=== PATIENT | female | born 1965 | race Caucasian/White ===

== ENCOUNTER 2018-11-20 16:36 | Observation (INO) | payer OTHER, MEDICAID, SELFPAY ==
[2018-11-20] VITALS (8 sets, daily range): BP systolic 124–150; BP diastolic 60–90; PULSE 57–72; RESP 14–20; TEMP 36.4–36.8; O2SAT 94–100; BMI 30.2
--- NOTE | 2018-11-20 | DI.MRI.S_ITS ---
PROCEDURE: MR HEAD/BRAIN WO/W CON INDICATIONS: Severe headache, left-sided transient paresthesias TECHNIQUE: Noncontrast axial T1 spin echo, axial T2 fast spin echo, sagittal and axial FLAIR, coronal T2 fast spin echo, axial gradient echo, axial diffusion and ADC through the brain. After the administration of contrast, axial and coronal 3D VIBE or T1 spin echo with fat saturation through the brain. COMPARISON: [facility], CT, CT ANGIO HEAD AND NECK, 11/20/2018, 17:35. FINDINGS: Image quality: Excellent. CSF Spaces: Basal cisterns are patent. No extra-axial fluid collections. Ventricles are normal in size and shape. Brain: No midline shift. No intracranial bleeds or masses. No abnormal intracranial enhancement. The brainstem appears normal. Diffusion-weighted images demonstrate no acute ischemic insults. No chronic ischemic insults. Normal intravascular flow voids are present. Skull and face: Calvarial marrow is normal in signal. Orbits appear normal. Sinuses: Sinuses and mastoids appear clear. IMPRESSION: 1. Normal brain MRI exam. Dictated by: Rupa Newton M.D. on 11/22/2018 at 13:12 Approved by: Rupa Newton M.D. on 11/22/2018 at 13:17
--- NOTE | 2018-11-20 16:50 | ED.NEUROSD ---
HPI - Neuro Symptoms/Deficit General Chief Complaint: Neuro Symptoms/Deficit Stated Complaint: throbbing head on left side,lossing sleep. Time Seen by Provider: 11/20/18 16:50 Source: patient Mode of arrival: ambulatory Limitations: no limitations History of Present Illness HPI Narrative: Patient is a 53-year-old female here for evaluation of a left-sided sharp headache. She states that it started last evening. Has had headaches in the past but nothing like this. She states sitting on the couch last night when the symptoms came on. States that it is as bad now as it was last evening. No fevers. No neck pain. She states that a couple hours ago she started having tingling in the left side of her jaw. Also had tingling in her left hand and left foot. No chest pain. No shortness of breath. Has not tried anything for her symptoms prior to arrival Related Data Home Medications Medication Instructions Recorded Confirmed No Known Home Medications 11/20/18 11/20/18 Allergies Allergy/AdvReac Type Severity Reaction Status Date / Time lanolin [LANOLIN] Allergy Unknown Verified 11/20/18 16:40 latex [LATEX] Allergy Unknown Verified 11/20/18 16:40 Review of Systems Constitutional Denies fatigue, Denies fever(s), Denies frequent falls, Reports headache(s), Denies lethargy and Denies malaise Eyes Denies blurry vision, Denies diplopia and Reports photophobia ENT Ears, Nose, Mouth, and Throat: Denies vertigo, Denies dizziness, Reports facial pain, Reports headache(s), Denies neck pain, Denies disequilibrium, Denies sinus pain and Denies sinus pressure Cardiovascular Denies chest pain, Denies edema, Denies irregular heart rhythm, Reports radiating jaw, neck or arm pain, Denies palpitations and Denies dyspnea Respiratory Denies cough, Denies dyspnea and Denies wheezing Gastrointestinal Gastrointestinal: Denies abdominal pain, Denies nausea and Denies vomiting Musculoskeletal Denies myalgias, Denies arthralgias, Denies neck pain and Reports tingling (Left hand left foot) Integumentary/Breasts Denies rash Neurologic Denies behavioral changes, Denies confusion, Denies vertigo, Denies dizziness, Denies frequent falls, Reports headache(s), Denies memory loss, Denies restless legs, Reports tingling (Left hand left foot) and Denies disequilibrium Psychiatric Denies behavioral changes, Denies confusion and Denies memory loss Endocrine Denies fatigue and Denies palpitations Hematologic/Lymphatic Comments: Not on anticoagulation Allergic/Immunologic Denies wheezing PFSH Medical History Murmur, heart (Acute) Surgical History History of cholecystectomy (Acute) Social History Smoking Status: Never smoker Exam Initial Vital Signs Initial Vital Signs: Vital Signs Temperature 97.5 F L 11/20/18 16:40 Pulse Rate 72 11/20/18 16:40 Respiratory Rate 20 11/20/18 16:40 Blood Pressure 124/70 11/20/18 16:40 Pulse Oximetry 98 11/20/18 16:40 Const General: cooperative, healthy appearing, comfortable, well developed, well groomed and No acute distress Orientation: alert, awake and oriented x3 HENMT Head: normal to inspection and normocephalic Neck Neck: no meningeal signs Lymphatic: No lymphadenopathy Resp Effort & Inspection: normal respiratory effort Auscultation: clear to auscultation bilaterally Cardio Rate: regular rate Rhythm: regular rhythm Heart Sounds: murmur systolic III/ Pulses: radial pulses present GI Inspection: normal to inspection and non-distended Palpation: No firm and No tender Neuro General: alert, awake and oriented x3 Cranial Nerves: CN's II-XI intact bilaterally Cognition: normal cognition Speech: speech normal Gait: normal gait Motor: muscle tone normal throughout Sensory Exam: no sensory deficits noted (Decreased sensation to the left hand light touch compared to the right hand. Returns to normal just proximal to the wrist) Extrem General: normal to inspection and capillary refill normal Psych Appearance: grossly normal and well kempt Scores GCS Penny coma scale eye opening: Spontaneous Penny coma scale verbal response: Orientated Penny coma scale motor response: Obey commands [place] coma scale total score: 15 HEART Score Heart Score history: Slightly Suspicious Heart Score EKG: Normal Heart Score Age: 45-64 years old Heart Score risk factors: No known risk factors Heart Score troponin: < or = to normal limit Heart Score Total: 1 NIH Stroke Scale Level of Conciousness: Alert, keenly responsive Ask month/age: Answers both questions correctly. Open/close eyes, close hand: Performs both tasks correctly Best gaze horizontal: Normal Visual powers: No visual loss Facial palsy: Normal symetrical movement Left arm drift: No drift for full 10 sec Right arm drift: No drift for full 10 sec Left leg drift: No drift for full 10 sec Right leg drift: No drift for full 10 sec Limb ataxia: Absent Sensory on face/arms/legs: Mild to moderate sensory loss, can tell touch Best language: No aphasia, normal Dysarthria: Normal Extinction or inattention: No abnormality Total NIH Stroke scale score: 1 Course Orders Ordered: ED Orders 11/20/18 17:00 Complete Blood Count AUTO DIFF Stat Comprehensive Metabolic Panel Stat Lipase Stat Partial Thromboplastin Time Stat Prothrombin Time INR Stat Troponin I Stat 11/20/18 17:08 EKG-12 Lead Stat 11/20/18 17:12 CT angio head and neck Stat 11/20/18 19:48 Troponin I Stat Sodium Chloride (Normal Saline 0.9%) 1,000 mls @ 125 mls/hr IV CONT TRI Last Admin: 11/20/18 17:39 Dose: 125 mls/hr Discontinued Medications Diphenhydramine HCl (Benadryl) 25 mg IV NOW ONE Stop: 11/20/18 17:06 Last Admin: 11/20/18 17:38 Dose: 25 mg Metoclopramide HCl (Reglan) 10 mg IV NOW ONE Stop: 11/20/18 17:06 Last Admin: 11/20/18 17:38 Dose: 10 mg Vital Signs - 8 hr 11/20/18 16:40 11/20/18 17:18 11/20/18 18:00 Temperature 97.5 F L Pulse Rate 72 69 72 Respiratory Rate 20 19 18 Blood Pressure 124/70 Blood Pressure [Left Arm] 139/71 144/75 H Pulse Oximetry 98 97 96 11/20/18 18:30 11/20/18 19:02 11/20/18 19:30 Temperature Pulse Rate 62 63 58 L Respiratory Rate 15 14 14 Blood Pressure Blood Pressure [Left Arm] 128/60 128/67 137/74 Pulse Oximetry 98 94 100 MDM - Neuro Symptoms/Deficit Lab Data Attestation: I reviewed the patient's lab results. Result diagrams: 11/20/18 17:00 11/20/18 17:00 Lab Results 11/20/18 11/20/18 11/20/18 Range/Units 17:00 17:00 17:00 WBC 7.5 (4.5-11.0) X10^3/uL RBC 4.83 (4.0-5.2) X10^6/uL Hgb 15.1 (12.0-16.0) g/dL Hct 44.4 (36-46) % MCV 91.9 (80-100) fL MCH 31.2 (26-34) PG MCHC 34.0 (30-36) % RDW 13.8 (11.6-14.8) % Plt Count 268 (150-400) X10^3/uL Neut % (Auto) 54.2 (50-75) % Lymph % (Auto) 30.7 (25-40) % [place] % (Auto) 11.6 (3-14) % Eos % (Auto) 2.9 (2-4) % Baso % (Auto) 0.6 (0-2) % Neut # (Auto) 4000 (6353-4460) /uL Lymph # (Auto) 2300 (1037-7909) /uL [place] # (Auto) 900 (0-900) /uL Eos # (Auto) 200 (0-450) /uL Baso # (Auto) 0 (0-100) /uL PT 11.2 (10.1-12.7) SECONDS INR 1.0 (0.9-1.3) APTT 32 (26.4-36.2) SECONDS Sodium 141 (137-145) mmol/L Potassium 3.8 (3.4-5.1) mmol/L Chloride 104 (98-107) mmol/L Carbon Dioxide 28 (22-32) mmol/L BUN 15 (7-17) mg/dL Creatinine 0.70 (0.52-1.04) mg/dL Estimated GFR > 60.0 (>60) mL/min BUN/Creatinine Ratio 21.4 (6-22) Glucose 80 (70-100) mg/dL Calcium 9.3 (8.4-10.2) mg/dL Total Bilirubin 0.3 (0.2-1.3) mg/dL AST 34 (14-36) IU/L ALT 49 (9-52) IU/L Alkaline Phosphatase 91 (38-126) U/L Troponin I (0.01-0.034) ng/mL Total Protein 7.5 (6.3-8.2) g/dL Albumin 4.4 (3.5-5.0) g/dL Globulin 3.1 (1.7-4.1) g/dL Albumin/Globulin Ratio 1.4 (1.0-2.8) Lipase 140 (23-300) U/L 11/20/18 11/20/18 Range/Units 17:00 19:48 WBC (4.5-11.0) X10^3/uL RBC (4.0-5.2) X10^6/uL Hgb (12.0-16.0) g/dL Hct (36-46) % MCV (80-100) fL MCH (26-34) PG MCHC (30-36) % RDW (11.6-14.8) % Plt Count (150-400) X10^3/uL Neut % (Auto) (50-75) % Lymph % (Auto) (25-40) % [place] % (Auto) (3-14) % Eos % (Auto) (2-4) % Baso % (Auto) (0-2) % Neut # (Auto) (2742-7108) /uL Lymph # (Auto) (9729-0286) /uL [place] # (Auto) (0-900) /uL Eos # (Auto) (0-450) /uL Baso # (Auto) (0-100) /uL PT (10.1-12.7) SECONDS INR (0.9-1.3) APTT (26.4-36.2) SECONDS Sodium (137-145) mmol/L Potassium (3.4-5.1) mmol/L Chloride (98-107) mmol/L Carbon Dioxide (22-32) mmol/L BUN (7-17) mg/dL Creatinine (0.52-1.04) mg/dL Estimated GFR (>60) mL/min BUN/Creatinine Ratio (6-22) Glucose (70-100) mg/dL Calcium (8.4-10.2) mg/dL Total Bilirubin (0.2-1.3) mg/dL AST (14-36) IU/L ALT (9-52) IU/L Alkaline Phosphatase (38-126) U/L Troponin I < 0.012 0.023 (0.01-0.034) ng/mL Total Protein (6.3-8.2) g/dL Albumin (3.5-5.0) g/dL Globulin (1.7-4.1) g/dL Albumin/Globulin Ratio (1.0-2.8) Lipase (23-300) U/L Imaging Data CT scan - head: Radiologist's impression: [address] [address] [address] Scan Report Signed Patient: Ban Rashid RMR#: [id number] : 1965Acct:[id number] Age/Sex: 53 / FDate of Service: 11/20/18 Loc: ED Accession Number: [id number] Procedure: CT angio head and neck Ordering Provider: Mustapha Stringer D.O. PROCEDURE: CT ANGIO HEAD AND NECK INDICATIONS: L sided headache with left sided weakness and neck pain TECHNIQUE: Pre-contrast 4.5 mm thick sections acquired from the foramen magnum to the vertex. After the administration of intravenous contrast, 1 mm thick sections acquired from the aortic arch through the [place] of [place]. Post-contrast 4.5 mm thick sections then re-acquired from the foramen magnum to the vertex. 3-dimensional wylesli-luubyuthj-tahlriunah (MIP) and/or volume rendering reformats were acquired of the central intracranial vasculature and neck separately. COMPARISON: None. FINDINGS: Image quality: Excellent. BRAIN: CSF spaces: Ventricles are normal in size and shape. Basal cisterns are patent. No extra-axial fluid collections. Brain: No midline shift. No intracranial bleeds or masses. [place]-white matter interface appears intact. Skull and face: Calvarium and facial bones appear intact, without suspicious lesions. Orbits appear normal. Sinuses: There is a small mucous retention cyst or polyp in the left maxillary sinus. Mastoids are clear. HEAD CT ANGIOGRAPHY: Anterior circulation: Intracranial internal carotid arteries are normal in size and flow. The flow within the paired anterior cerebral arteries is normal and symmetric. The flow within the middle cerebral arteries is normal and symmetric. The anterior communicating artery is seen. No aneurysms are seen. Posterior circulation: Visualized portions of the vertebral arteries demonstrate normal caliber, and join to form a normal appearing basilar artery. Flow within the posterior cerebral arteries is normal and symmetric. No aneurysms are seen. NECK CT ANGIOGRAPHY: Carotid system: The great vessels demonstrate a conventional anatomy as they arise from the aortic arch. The origins of the common carotid arteries appear patent. The common carotid arteries demonstrate normal caliber and courses. The bifurcation regions are both widely patent. The internal carotid arteries demonstrate normal calibers and courses. Posterior circulation: The origins of the vertebral arteries both appear widely patent. The more superior extracranial portions of both vertebral arteries also demonstrate normal courses and calibers. They join to form a normal appearing basilar artery. Soft tissues: Visualized neck soft tissues demonstrate no suspicious abnormalities. Bones: No suspicious bony lesions. Visualized cervical spine appears normally aligned. There is degenerative disc disease in cervical spine. IMPRESSION: No acute intracranial abnormality. A small mucous retention cyst or polyp in the left maxillary sinus. No high-grade stenosis or occlusion in intracranial anterior circulations. No high-grade stenosis or occlusion in intracranial posterior circulations. Calcified plaque at the right carotid bifurcation causing 40% stenosis at the right internal carotid artery origin. No high-grade stenosis in left cervical common or internal carotid arteries. Normal cervical vertebral arteries bilaterally. Degenerative disc disease in cervical spine. Any quantitative measurements of stenosis were performed using NASCET criteria. Dictated by: Rupa Newton M.D. on 11/20/2018 at 19:08 Approved by: Rupa Newton M.D. on 11/20/2018 at 19:1 ECG Data Attestation: I personally reviewed and interpreted this ECG as follows: Prior ECG tracings: not available for review Interpretation: Sinus rhythm Ventricular rate is 64 Normal axis Normal QRS Normal QTC No ST T wave changes MDM Narrative Medical decision making narrative: Patient's EKG is unremarkable. Troponin is negative. Pending CTA of head and neck for evaluation of intracranial pathology. Head CT is unremarkable. EKG is unremarkable. Initial troponin undetectable. Second troponin now in the detectable but still negative range. Given her prior history of no cardiac workup and her left jaw pain and paresthesias in left arm I do feel that admitting to the hospital for continued evaluation is warranted. Discussed the case with RASHAD Benitez the [facility] hospitalist who will accept the patient. Discussed admission with the patient. She expressed understanding and agreement plan. Discharge Plan Departure Patient Disposition: Admitted as Observation Clinical Impression: Headache, Arm paresthesia, left, Jaw pain
--- NOTE | 2018-11-20 17:12 | DI.CT.S_ITS ---
PROCEDURE: CT ANGIO HEAD AND NECK INDICATIONS: L sided headache with left sided weakness and neck pain TECHNIQUE: Pre-contrast 4.5 mm thick sections acquired from the foramen magnum to the vertex. After the administration of intravenous contrast, 1 mm thick sections acquired from the aortic arch through the [place] of [place]. Post-contrast 4.5 mm thick sections then re-acquired from the foramen magnum to the vertex. 3-dimensional ijwqtwv-toezlzbmv-ssdsiofxrn (MIP) and/or volume rendering reformats were acquired of the central intracranial vasculature and neck separately. COMPARISON: None. FINDINGS: Image quality: Excellent. BRAIN: CSF spaces: Ventricles are normal in size and shape. Basal cisterns are patent. No extra-axial fluid collections. Brain: No midline shift. No intracranial bleeds or masses. [place]-white matter interface appears intact. Skull and face: Calvarium and facial bones appear intact, without suspicious lesions. Orbits appear normal. Sinuses: There is a small mucous retention cyst or polyp in the left maxillary sinus. Mastoids are clear. HEAD CT ANGIOGRAPHY: Anterior circulation: Intracranial internal carotid arteries are normal in size and flow. The flow within the paired anterior cerebral arteries is normal and symmetric. The flow within the middle cerebral arteries is normal and symmetric. The anterior communicating artery is seen. No aneurysms are seen. Posterior circulation: Visualized portions of the vertebral arteries demonstrate normal caliber, and join to form a normal appearing basilar artery. Flow within the posterior cerebral arteries is normal and symmetric. No aneurysms are seen. NECK CT ANGIOGRAPHY: Carotid system: The great vessels demonstrate a conventional anatomy as they arise from the aortic arch. The origins of the common carotid arteries appear patent. The common carotid arteries demonstrate normal caliber and courses. The bifurcation regions are both widely patent. The internal carotid arteries demonstrate normal calibers and courses. Posterior circulation: The origins of the vertebral arteries both appear widely patent. The more superior extracranial portions of both vertebral arteries also demonstrate normal courses and calibers. They join to form a normal appearing basilar artery. Soft tissues: Visualized neck soft tissues demonstrate no suspicious abnormalities. Bones: No suspicious bony lesions. Visualized cervical spine appears normally aligned. There is degenerative disc disease in cervical spine. IMPRESSION: No acute intracranial abnormality. A small mucous retention cyst or polyp in the left maxillary sinus. No high-grade stenosis or occlusion in intracranial anterior circulations. No high-grade stenosis or occlusion in intracranial posterior circulations. Calcified plaque at the right carotid bifurcation causing 40% stenosis at the right internal carotid artery origin. No high-grade stenosis in left cervical common or internal carotid arteries. Normal cervical vertebral arteries bilaterally. Degenerative disc disease in cervical spine. Any quantitative measurements of stenosis were performed using NASCET criteria. Dictated by: Rupa Newton M.D. on 11/20/2018 at 19:08 Approved by: Rupa Newton M.D. on 11/20/2018 at 19:19
[2018-11-20 17:15] LABS: Add Manual Diff / Slide Review NO; Basophils Absolute Auto 0 /uL (0-100); Basophils Percent Auto 0.6 % (0-2); Eosinophils Absolute Auto 200 /uL (0-450); Eosinophils Percent Auto 2.9 % (2-4); Hematocrit 44.4 % (36-46); Hemoglobin 15.1 g/dL (12.0-16.0); Lymphocytes Absolute Auto 2300 /uL (1100-4500); Lymphocytes Percent Auto 30.7 % (25-40); Mean Corpuscular Hemoglobin 31.2 PG (26-34); Mean Corpuscular Volume 91.9 fL (80-100); Monocytes Absolute Auto 900 /uL (0-900); Monocytes Percent Auto 11.6 % (3-14); Neutrophils Absolute Auto 4000 /uL (1500-7000); Neutrophils Percent Auto 54.2 % (50-75); Platelet Count 268 X10^3/uL (150-400); Red Blood Cell Count 4.83 X10^6/uL (4.0-5.2); Red Cell Distribution Width 13.8 % (11.6-14.8); White Blood Cell Count 7.5 X10^3/uL (4.5-11.0)
[2018-11-20 17:18] LABS: Prothrombin Time 11.2 SECONDS (10.1-12.7)
[2018-11-20 17:21] LABS: PTT Partial Thromboplastin Tim 32 SECONDS (26.4-36.2)
[2018-11-20 17:23] LABS: Alanine Aminotransferase 49 IU/L (9-52); Albumin 4.4 g/dL (3.5-5.0); Albumin Globulin Ratio 1.4 (1.0-2.8); Alkaline Phosphatase 91 U/L (38-126); Aspartate Aminotransferase 34 IU/L (14-36); BUN Creatinine Ratio 21.4 (6-22); Bilirubin Total 0.3 mg/dL (0.2-1.3); Blood Urea Nitrogen 15 mg/dL (7-17); Calcium 9.3 mg/dL (8.4-10.2); Carbon Dioxide 28 mmol/L (22-32); Chloride 104 mmol/L (98-107); Estimated Glomerular Filt Rate > 60.0 mL/min (>60); Globulin 3.1 g/dL (1.7-4.1); Glucose 80 mg/dL (70-100); HEMOLYSIS 24 (0-50); Lipase 140 U/L (23-300); Potassium 3.8 mmol/L (3.4-5.1); Sodium 141 mmol/L (137-145); Total Protein 7.5 g/dL (6.3-8.2)
[2018-11-20 17:35] LABS: Troponin I < 0.012 ng/mL (0.01-0.034)
[2018-11-20] MEDS: diphenhydrAMINE 50 MG/ML VIAL 25 MG IV (17:38)
[2018-11-20] MEDS: METOCLOPRAMIDE 10 MG/2 ML INJ IV (17:38)
[2018-11-20] MEDS: SODIUM CHLORIDE 0.9% 1,000 ML 125 ML IV (17:39)
--- NOTE | 2018-11-20 17:47 | PC.NURSE ---
pt reports that she developed a headache last night on the left side of her head, radiating down her face and neck. she reports that her left hand went numb. reports numbness in her left hand upon arrival to [facility]. Denies any vision changes.
--- NOTE | 2018-11-20 19:51 | PC.NURSE ---
drawn by lab
[2018-11-20 20:15] LABS: Troponin I 0.023 ng/mL (0.01-0.034)
[2018-11-20] MEDS: ASPIRIN 81 MG TAB 324 MG PO (20:42)
--- NOTE | 2018-11-20 21:11 | PM.HP.1 ---
History of Present Illness Date Patient Seen: 11/20/18 Time Patient Seen: 20:31 Chief complaint: throbbing head on left side,lossing sleep. Narrative: Ban Delgadillo is a 53-year-old female patient who has a past history cardiac anomaly and strong family history of cardiovascular disease and presents today to the ER with complaints of a left headache that started yesterday and continued through today. The pain was severe enough to affect her sleep. She did not take medications stating she ?is not a pill taker?. She was able to distract herself with activities through the day and experienced jaw pain onset approximately 12 30-1 p.m. today. This afternoon at about 4:00 p.m. the patient developed left-sided facial numbness, a neck ache, numbness and tingling in her left arm and hand and described altered sensation down her left side and into her left leg and foot and presented to the emergency department for evaluation. Patient has had associated complaints of photophobia and phonophobia but has not had a headache of this severity or duration with a for mentioned symptoms previously. The patient does have a cardiac history it was on cardiology surveillance with a long history of cardiac murmur since her youth and recently had a Holter monitor by her digital marketing manager at [facility]. She has a strong family history with her mother having atrial fibrillation a pacemaker and hypertension. She also lost 2 sisters at approximately the age of 30 due to cardiac disease. The patient provides additional history of exertional dyspnea with shortness of breath ascending a flight of stairs that started approximately 2 months ago. Patient denies recent illness or trauma and provides no other significant past medical history though she does complain of prior lumbar strain and right hip pain. She is postmenopausal no longer having menstrual periods and is not taking hormone replacement therapy. She had recent gallbladder surgery that was complicated by gallbladder or rupture with a prolonged recovery several months ago. She takes no routine medications and takes multiple vitamins tumeric and magnesium. She presently has continued head pain but paresthesias have resolved, she denies changes in vision or hearing and no dizziness. She denies complaints of chest pain, back pain, cough or dyspnea at rest, abdominal pain, nausea or vomiting Patient History Medical History Murmur, heart (Acute) Postmenopause (Acute) Surgical History History of cholecystectomy (Acute) Previous section (Acute) Family & Social History Family History: Reviewed 11/20/18 by DAMARIS Bains Safety & Behavioral: Feels Safe in Current Yes Environment Been Physically Hurt or No Threatened By a Person Tobacco & Substance use: Smoking Status Never smoker alcohol intake frequency holiday/special occasion Substance Use Type does not use,marijuana Comment: The patient is currently single however lives with her significant other for the last year in a single family dwelling. She has a strong family history of cardiovascular disease on her mother's side and having 2 sisters who of cardiovascular events both in their 30s. She knows little of her father's health but reports no known health complications. The patient reports consuming occasional alcohol 1-2 times per month. She is a past smoker having quit back in the having smoked approximately 1 pack per week for just a couple years. She uses no recreational pharmaceuticals or cannabis product. 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 Advanced directive: Patient has no advanced directive but states she wishes to have full resuscitation. She does need her daughter Lynnette Torres to be her surrogate decision maker. Meds Home Medications Medication Instructions Recorded Confirmed Type No Known Home Medications 11/20/18 11/20/18 History Allergies Allergy/AdvReac Type Severity Reaction Status Date / Time lanolin [LANOLIN] Allergy Unknown Verified 11/20/18 16:40 latex [LATEX] Allergy Unknown Verified 11/20/18 16:40 Review of Systems Review of Systems Constitutional: Denies recent illness or cold symptoms, fevers, chills, sweats, fatigue, good appetite with stable weight Eyes: Denies visual changes, denies floaters, diplopia ENT: Positive for left-sided headache, photophobia, phonophobia, left jaw neck pain, Denies hearing changes, ear pain, no nasal congestion, rhinorrhea, no dysphagia, sore throat or dentalgia, no neck stiffness Respiratory: Positive for exertional dyspnea, Denies SOB, cough, wheezing Cardiovascular: Positive for strong family history of cardiovascular disease, Denies chest pain, palpitations, orthostatic dizziness, syncope, edema Gastrointestinal: Positive for cholecystectomy, Denies abdominal pain, nausea or vomiting, no reflux or bloating, constipation or diarrhea, denies blood in stool. Genitourinary: Positive for postmenopausal hot flashes and night sweats, denies menstruating, vaginal discharge, no complains of frequency, burning or urgency, hematuria on voiding Musculoskeletal: Positive for history of low back strain, right hip pain, multiple joint arthritis, denies falls, weakness, limited movement, edema, myalgia or joint swelling. Integumentary: denies skin lesions, masses, rashes, hives, itching or hair loss Neurological: Positive for numbness and tingling left face left-sided arm and leg now resolved, denies dizziness, confusion, speech difficulties or seizures Psychiatric: denies disturbances in thought, attentions or mood, denies substance abuse Endocrine: denies excessive thirst or urination, no goiter, lethargy or heat/cold intolerance. Heme/lymph: Denies lymphadenopathy, abnormal bleeding or bruising Exam Vital Signs (past 8 hours): - 11/20/18 16:40 11/20/18 17:18 11/20/18 18:00 Temperature 97.5 F L Pulse Rate 72 69 72 Respiratory Rate 20 19 18 Blood Pressure 124/70 Blood Pressure [Left Arm] 139/71 144/75 H Pulse Oximetry 98 97 96 11/20/18 18:30 11/20/18 19:02 11/20/18 19:30 Temperature Pulse Rate 62 63 58 L Respiratory Rate 15 14 14 Blood Pressure Blood Pressure [Left Arm] 128/60 128/67 137/74 Pulse Oximetry 98 94 100 11/20/18 20:37 Temperature Pulse Rate 57 L Respiratory Rate 18 Blood Pressure Blood Pressure [Left Arm] 130/90 Pulse Oximetry 99 Oxygen Delivery Method Room Air Narrative Exam Narrative: General: Well developed, well nourished, in no acute distress. Skin: Warm, dry, pink, no rashes, no visible lesions HEENT: Normocephalic, PERRLA, EOMs intact without nystagmus, conjunctiva moist, sclera is anicteric, no ear pain, hearing grossly normal, left maxillary sinus tenderness to percussion, no rhinorrhea, oropharynx is moist and pink without lesions or exudate, uvula midline, posterior pharynx without inflammation, no cervical lymphadenopathy Neck: Supple, no masses, thyroid non tender without thyromegaly or nodules, trachea midline, no carotid bruits or JVD, no supraclavicular lymphadenopathy Cardiac: Regular rate and rhythm, S1-S2, no murmur, no gallops or rubs, 2+ radial pulse, 1+ posterior tibial pulse, capillary refill is brisk, no edema Chest: Symmetrical movement, breathing non labored, no cough present, BS equal bilateral without coarseness, crackles or wheezes Abdomen: Well-healed laparoscopic surgical scars, Soft, no tenderness or guarding, no masses or organomegaly, no flank or suprapubic pain, BS normal. Back: Normal curvature, no tenderness to palpation, no CVA tenderness on percussion Extremities: Full ROM, exquisite tenderness on palpation over right trochanteric bursa, no synovial effusions or deformities, strength 5/5 and symmetrical, gait not assessed Neuro: AAOx4, cranial nerves II-XII grossly intact, no alteration in sensation elicited, distal sensation intact to light touch, no paresthesias, NIH score is 0 on my exam Psych: pleasant, thought coherent, stable mood and congruent affect Objective Labs Result Diagrams: 11/20/18 17:00 11/20/18 17:00 Labs: Laboratory Results - last 24 hr 11/20/18 11/20/18 11/20/18 17:00 17:00 17:00 WBC 7.5 RBC 4.83 Hgb 15.1 Hct 44.4 MCV 91.9 MCH 31.2 MCHC 34.0 RDW 13.8 Plt Count 268 Neut % (Auto) 54.2 Lymph % (Auto) 30.7 [place] % (Auto) 11.6 Eos % (Auto) 2.9 Baso % (Auto) 0.6 Neut # (Auto) 4000 Lymph # (Auto) 2300 [place] # (Auto) 900 Eos # (Auto) 200 Baso # (Auto) 0 PT 11.2 INR 1.0 APTT 32 Sodium 141 Potassium 3.8 Chloride 104 Carbon Dioxide 28 BUN 15 Creatinine 0.70 Estimated GFR > 60.0 BUN/Creatinine Ratio 21.4 Glucose 80 Calcium 9.3 Total Bilirubin 0.3 AST 34 ALT 49 Alkaline Phosphatase 91 Troponin I Total Protein 7.5 Albumin 4.4 Globulin 3.1 Albumin/Globulin Ratio 1.4 Lipase 140 11/20/18 11/20/18 17:00 19:48 WBC RBC Hgb Hct MCV MCH MCHC RDW Plt Count Neut % (Auto) Lymph % (Auto) [place] % (Auto) Eos % (Auto) Baso % (Auto) Neut # (Auto) Lymph # (Auto) [place] # (Auto) Eos # (Auto) Baso # (Auto) PT INR APTT Sodium Potassium Chloride Carbon Dioxide BUN Creatinine Estimated GFR BUN/Creatinine Ratio Glucose Calcium Total Bilirubin AST ALT Alkaline Phosphatase Troponin I < 0.012 0.023 Total Protein Albumin Globulin Albumin/Globulin Ratio Lipase Assessment & Plan Plan: Assessment/Plan Narrative: 1. Severe headache, present on admission, active -severe headache onset yesterday, impeding sleep -associated photo and phonophobia -development left facial paresthesia, left jaw pain, left-sided paresthesia into leg and foot -no prior history of migraines -CTA is negative for cerebrovascular abnormality -will obtain an MRI of the head with contrast 2. Possible acute coronary syndrome, jaw pain present on admission, active -prior cardiac history followed by Cardiology with Holter monitor approximately 2 months ago with digital marketing manager at [facility]. -history of heart murmur since youth -strong family history of cardiovascular disease on her mother's side with 2 sisters passing away in the 30s from cardiovascular disease per patient report -initial troponin on admit was less than 0.012, 2nd troponin 3 hr later was 0.023, 5 hr since onset of symptoms of numbness and tingling, 7 hr since onset of jaw pain patient asymptomatic at this time. -12 lead EKG, sinus rhythm with T-wave abnormalities in leads 3 and AVF, without ectopy or block, no Q-waves, -patient received 3 81 mg aspirin in the emergency department -will continue to trend troponins -will repeat EKG in the morning -nitroglycerin sublingual x3 as needed for chest pain -morphine as needed for pain 3. Right trochanteric bursitis, present on admission, active -PT to evaluate 4. Postmenopausal, present on admission, stable -positive for hot flashes and night sweats -not on hormone replacement therapy 5. Ruptured gallbladder, status post cholecystectomy, resolved -no continued complications Patient is admitted observation with expected length of stay 1 day. Scores GCS [place] coma scale eye opening: Spontaneous [place] coma scale verbal response: Orientated [place] coma scale motor response: Obey commands [place] coma scale total score: 15 ABCD2 Age >= 60 years: no Initial BP. Either SBP >= 140 or DBP >= 90.: no Clinical features of the TIA: other symptoms (Left hand tingling on admission) Duration of symptoms: >= 60 minutes History of diabetes: no ABCD2 Score: 2 NIHSS Level of Conciousness: Alert, keenly responsive Ask month/age: Answers both questions correctly. Open/close eyes, close hand: Performs both tasks correctly Best gaze horizontal: Normal Visual powers: No visual loss Facial palsy: Normal symetrical movement Left arm drift: No drift for full 10 sec Right arm drift: No drift for full 10 sec Left leg drift: No drift for full 10 sec Right leg drift: No drift for full 10 sec Limb ataxia: Absent Sensory on face/arms/legs: Normal, no sensory loss Best language: No aphasia, normal Dysarthria: Normal Extinction or inattention: No abnormality Total NIH Stroke scale score: 0
--- NOTE | 2018-11-20 21:26 | PC.NURSE ---
fluids to continue in AC
--- NOTE | 2018-11-20 21:37 | DI.RAD.S_ITS ---
PROCEDURE: XR CHEST 1V INDICATIONS: Cardiac disease, extertional dyspnea TECHNIQUE: One view of the chest was acquired. COMPARISON: None. FINDINGS: Surgical changes and devices: None. Lungs and pleura: No pleural effusions or pneumothorax. Lungs are clear. Mediastinum: Mediastinal contours appear normal. Heart size is normal. Bones and chest wall: No suspicious bony lesions. Overlying soft tissues appear unremarkable. IMPRESSION: Chest without acute cardiopulmonary abnormalities. Dictated by: Mukul Diana M.D. on 11/21/2018 at 12:58 Approved by: Mukul Diana M.D. on 11/21/2018 at 12:58
[2018-11-20 22:12] LABS: Cholesterol 250 mg/dL (140-199); HDL Cholesterol 54 mg/dL (40-60); LDL Cholesterol Calculated 159 mg/dL (<100); Magnesium 2.2 mg/dL (1.6-2.3); Triglycerides 185 mg/dL (35-150)
[2018-11-20] MEDS: ACETAMINOPHEN 325 MG TABLET 650 MG PO (22:30)
--- NOTE | 2018-11-20 22:48 | PC.NURSE ---
Patient is A&Ox4, is on RA at 99% saturation, and rates her pain 4/10 in her left jaw/cheekbone/hoahaoism. Tele #2 is placed and last reading states NSR. Skin is intact except for 3 scars on abd from gallbladder removal last year in July. Patient reports minor tingling and numbness to left hand and foot, though she states it is less than it was when she first came into the ED. Patient has been oriented to use of call light, and agrees to call for assistance instead of getting up out of bed by herself. BA is active. Heart sounds are WNL, lung sounds are clear, and bowel tones are present though hypoactive. Abd is soft and non-tender. Patient declined use of SCD's, but agreed to do regular ankle waves and circles. Will continue to monitor.
[2018-11-21 00:20] VITALS: BP 112/69; PULSE 56; RESP 17; TEMP 36.4; O2SAT 100
[2018-11-21 00:30] LABS: Creatine Kinase 88 U/L (30-135)
[2018-11-21 00:43] LABS: Troponin I 0.016 ng/mL (0.01-0.034)
--- NOTE | 2018-11-21 00:47 | PC.NURSE ---
Addendum entered by Louann Szymanski R.N. 11/21/18 06:26: Slept well. States the pressure in left face/jaw if resolved. No neuro deficits noted. Tele reading at 0400 was SB. Original Note: Patient is alert and oriented with NIH of 0. Still states she has pressure in left cheek/jaw but denies pain. Breath sounds CTA with RA sat of 98%; on continuous pulse oximetry. HRR and was SR on recent telemetry reading. Denies nausea. BT present and abdomen is soft. Denies dysuria, frequency or urgency. Independent with bed mobility and SBA when up as precaution related to previous symptoms of parasthesias; is steady on feet. Fall risk score is moderate; bed alarm is activated.
[2018-11-21 05:35] VITALS: BP 109/70; PULSE 54; RESP 18; TEMP 36.5; O2SAT 100
[2018-11-21 06:08] LABS: Add Manual Diff / Slide Review NO; Basophils Absolute Auto 0 /uL (0-100); Basophils Percent Auto 0.7 % (0-2); Eosinophils Absolute Auto 300 /uL (0-450); Eosinophils Percent Auto 4.8 % (2-4); Hematocrit 43.7 % (36-46); Hemoglobin 14.9 g/dL (12.0-16.0); Lymphocytes Absolute Auto 2500 /uL (1100-4500); Lymphocytes Percent Auto 46.7 % (25-40); Mean Corpuscular Hemoglobin 31.1 PG (26-34); Mean Corpuscular Volume 91.6 fL (80-100); Monocytes Absolute Auto 500 /uL (0-900); Neutrophils Absolute Auto 2000 /uL (1500-7000); Neutrophils Percent Auto 37.8 % (50-75); Platelet Count 258 X10^3/uL (150-400); Red Blood Cell Count 4.77 X10^6/uL (4.0-5.2); White Blood Cell Count 5.4 X10^3/uL (4.5-11.0)
[2018-11-21 06:12] LABS: BUN Creatinine Ratio 17.1 (6-22); Blood Urea Nitrogen 12 mg/dL (7-17); Calcium 9.3 mg/dL (8.4-10.2); Carbon Dioxide 29 mmol/L (22-32); Chloride 104 mmol/L (98-107); Creatine Kinase 74 U/L (30-135); Estimated Glomerular Filt Rate > 60.0 mL/min (>60); Glucose 96 mg/dL (70-100); HEMOLYSIS 27 (0-50); Potassium 4.7 mmol/L (3.4-5.1); Sodium 140 mmol/L (137-145)
[2018-11-21 06:23] LABS: Troponin I 0.017 ng/mL (0.01-0.034)
[2018-11-21 08:00] VITALS: BP 134/68; PULSE 62; RESP 16; TEMP 36.6; O2SAT 100
--- NOTE | 2018-11-21 08:00 | DI.ECHO.S_ITS ---
[facility]---------+ [facility] +---------+ : : [address] [place] : : : : [id number] : : : : Phone: [phone]---------+ Echocardiogram Report + + :Name: ROMULO TOLENTINO Study Date: 11/21/2018 Height: 61 in : :[facility] Weight: 160 lb: : Gender: Female BSA: 1.7 m2 : :: 1965 Age: 53 yrs : :Reason For Study: MIGRAINE, MURMUR : : Performed By: Karina Florentino : :Referring: PAULIE GAMA : + + Interpretation Summary The echo findings are consistent with hypertrophic cardiomyopathy. The mean gradient across the left ventricle outflow tract is trivial at 7 mmHg at rest which increases to 20 mmHg with Valsalva. There is systolic anterior motion of the mitral valve. There is systolic anterior motion of the chordal apparatus. The right ventricle is normal in size and function. No significant valvular abnormalities. Comparison is made with the echocardiogram of 07/03/2018. No significant change. Procedure: A two-dimensional transthoracic echocardiogram with color flow and Doppler was performed. The study quality was technically adequate. Comparison is made with the echocardiogram of 07/03/2018. The heart rate ranged between 60-67 bpm during the study. Left Ventricle: Left ventricular wall thickness is moderately increased. Proximal septal thickening is noted. The echo findings are consistent with trivial dynamic left ventricular outflow tract obstruction. The mean gradient across the left ventricle outflow tract is trivial at 7 mmHg at rest which increases to 20 mmHg with Valsalva. The echo findings are consistent with hypertrophic cardiomyopathy. There is severe proximal septal thickening noted. There is moderate asymmetric left ventricular hypertrophy. The ejection fraction is estimated to be 65-70%. Diastolic parameters suggest a relaxation abnormality of the left ventricle, consistent with probable normal filling pressures. Right Ventricle: The right ventricle is normal in size and function. Atria: Both atria are normal in size. There is no Doppler evidence for an interatrial shunt. Mitral Valve: There is systolic anterior motion of the chordal apparatus. The mitral valve leaflets appear borderline thickened, but open well. There is systolic anterior motion of the mitral valve. There is no mitral regurgitation noted. Aortic Valve: The aortic valve is trileaflet. The aortic valve opens well. The aortic valve is slightly calcified. There is no aortic valve stenosis. No aortic regurgitation is present. Tricuspid Valve: The tricuspid valve is normal in structure and function. There is a trace or physiologic amount of tricuspid regurgitation. Pulmonary artery pressures cannot be estimated because of the lack of a measurable TR jet velocity. Pulmonic Valve: The pulmonic valve is normal in structure and function. There is a trace or physiologic amount of pulmonic regurgitation. Great Vessels: The aortic root is normal size. The ascending aorta is normal in size. The aortic arch is normal in size. The pulmonary artery is normal size. The IVC is of normal diameter and collapses greater than 50% with a sniff. This suggests a low right atrial pressure of 3 mm Hg. Pericardium/ Pleura There is no pericardial effusion. There is no pleural effusion. MMode/2D Measurements & Calculations LVIDd: 3.7 cm LVOT diam: 2.0 cm LVIDs: 2.1 cm Ao root diam: 2.9 cm FS: 45.0 % asc Aorta Diam: 3.3 cm IVSd: 1.3 cm Ao Arch Diam (Prox Trans): 2.8 cm LVPWd: 0.96 cm LV ratliff. diameter/BSA (cm/m^2): 2.2 LV sys. diameter/BSA (cm/m^2): 1.2 LA A2 area: 20.7 cm2 RA long axis: 4.7 cm LA A4 area: 18.7 cm2 RA area: 16.6 cm2 LA length (vol): 5.9 cm RA vol: 50.3 ml LA vol: 55.3 ml RA : 29.3 ml/m2 LA vol index: 32.2 ml/m2 IVC diam: 1.2 cm RVD1 (basal): 3.0 cm TAPSE: 2.7 cm Doppler Measurements & Calculations Ao V2 max: 168.9 cm/sec LVOT Max Papo: 196.9 cm/sec Ao V2 mean: 130.8 cm/sec LV V1 max P.9 mmHg Ao max P.4 mmHg LV V1 VTI: 39.7 cm Ao mean P.5 mmHg ESPERANZA(I,D): 3.1 cm2 Ao V2 VTI: 40.6 cm ESPERANZA(V,D): 3.7 cm2 sev ratio: 0.98 ESPERANZA indexed to BSA (cm^2/m^2): 1.8 MV E max papo: 78.9 cm/sec MV P1/2t max papo: 79.5 cm/sec MV A max papo: 94.6 cm/sec MVA(P1/2t): 2.7 cm2 MV E/A: 0.83 Med Peak E' Papo: 5.5 cm/sec E/E' med: 14.4 Lat Peak E' Papo: 9.8 cm/sec E/E' lat: 8.1 E/e' average: 11.2 MV P1/2t: 80.2 msec SV(LVOT): 125.6 ml Electronically signed by: Win Chen M.D. on [place] Physician:11/21/2018 04:20 PM
--- NOTE | 2018-11-21 08:32 | P.PN_ITS ---
Subjective Date Patient Seen: 11/21/18 Time Patient Seen: 08:44 Interval history: She is seen today to follow up her rule out acute coronary syndrome workup, left-sided headache, left jaw pain, hyperlipidemia. She has a very striking family history of coronary artery disease at a young age. Her echocardiogram is pending. The CMP and CBC are normal. The cholesterol is high at 250 with an LDL of 159. Her morning EKG is sinus bradycardia without acute ST or T-wave changes. She says she feels better, so far this morning. A brain MRI is also pending. The troponin has dropped down to 0.017 this morning. Exam Vital Signs (past 8 hours): - 11/21/18 05:35 Temperature 97.7 F Pulse Rate 54 L Respiratory Rate 18 Blood Pressure 109/70 Pulse Oximetry 100 Oxygen Delivery Method Room Air Oxygen Flow Rate 0 Narrative Exam Narrative: Heart is regular rate and rhythm without murmur. Lungs are clear to auscultation bilaterally. Extremities have no ankle edema. She is alert and oriented x3 without apparent distress. Objective Labs Result Diagrams: 11/21/18 05:52 11/21/18 05:52 Labs: Laboratory Results - last 24 hr 11/20/18 11/20/18 11/20/18 17:00 17:00 17:00 WBC 7.5 RBC 4.83 Hgb 15.1 Hct 44.4 MCV 91.9 MCH 31.2 MCHC 34.0 RDW 13.8 Plt Count 268 Neut % (Auto) 54.2 Lymph % (Auto) 30.7 [place] % (Auto) 11.6 Eos % (Auto) 2.9 Baso % (Auto) 0.6 Neut # (Auto) 4000 Lymph # (Auto) 2300 [place] # (Auto) 900 Eos # (Auto) 200 Baso # (Auto) 0 PT 11.2 INR 1.0 APTT 32 Sodium 141 Potassium 3.8 Chloride 104 Carbon Dioxide 28 BUN 15 Creatinine 0.70 Estimated GFR > 60.0 BUN/Creatinine Ratio 21.4 Glucose 80 Calcium 9.3 Magnesium Total Bilirubin 0.3 AST 34 ALT 49 Alkaline Phosphatase 91 Total Creatine Kinase CK-MB (CK-2) CK-MB (CK-2) Rel Index Troponin I Total Protein 7.5 Albumin 4.4 Globulin 3.1 Albumin/Globulin Ratio 1.4 Triglycerides Cholesterol LDL Cholesterol, Calc HDL Cholesterol Lipase 140 11/20/18 11/20/18 11/20/18 17:00 19:48 20:00 WBC RBC Hgb Hct MCV MCH MCHC RDW Plt Count Neut % (Auto) Lymph % (Auto) [place] % (Auto) Eos % (Auto) Baso % (Auto) Neut # (Auto) Lymph # (Auto) [place] # (Auto) Eos # (Auto) Baso # (Auto) PT INR APTT Sodium Potassium Chloride Carbon Dioxide BUN Creatinine Estimated GFR BUN/Creatinine Ratio Glucose Calcium Magnesium 2.2 Total Bilirubin AST ALT Alkaline Phosphatase Total Creatine Kinase CK-MB (CK-2) CK-MB (CK-2) Rel Index Troponin I < 0.012 0.023 Total Protein Albumin Globulin Albumin/Globulin Ratio Triglycerides 185 H Cholesterol 250 H LDL Cholesterol, Calc 159 H HDL Cholesterol 54 Lipase 11/21/18 11/21/18 11/21/18 00:13 05:52 05:52 WBC 5.4 RBC 4.77 Hgb 14.9 Hct 43.7 MCV 91.6 MCH 31.1 MCHC 34.0 RDW 14.0 Plt Count 258 Neut % (Auto) 37.8 L Lymph % (Auto) 46.7 H [place] % (Auto) 10.0 Eos % (Auto) 4.8 H Baso % (Auto) 0.7 Neut # (Auto) 2000 Lymph # (Auto) 2500 [place] # (Auto) 500 Eos # (Auto) 300 Baso # (Auto) 0 PT INR APTT Sodium 140 Potassium 4.7 Chloride 104 Carbon Dioxide 29 BUN 12 Creatinine 0.70 Estimated GFR > 60.0 BUN/Creatinine Ratio 17.1 Glucose 96 Calcium 9.3 Magnesium Total Bilirubin AST ALT Alkaline Phosphatase Total Creatine Kinase 88 74 CK-MB (CK-2) TNP TNP CK-MB (CK-2) Rel Index TNP TNP Troponin I 0.016 0.017 Total Protein Albumin Globulin Albumin/Globulin Ratio Triglycerides Cholesterol LDL Cholesterol, Calc HDL Cholesterol Lipase Assessment & Plan (1) Jaw pain: Problem details: We are ruling out acute coronary syndrome. Echocardiogram is pending. Ideally a treadmill before discharge but since it is the weekend that may need to be done as an outpatient. Continue aspirin and begin atorvastatin today. Current visit: Yes Status: Acute (2) Arm paresthesia, left: Problem details: Ruling out acute coronary syndrome and proceeding with brain MRI to rule out any obvious brain mass causing the headaches and this symptom. Current visit: Yes Status: Acute (3) Headache: Problem details: Brain MRI pending. Already feeling better. Qualifiers: Headache chronicity pattern: unspecified pattern Headache type: unspecified Intractability: not intractable Qualified Code(s): R51 - Headache Current visit: Yes Status: Acute (4) Mixed hyperlipidemia: Problem details: Begin on atorvastatin 10 mg a day. Current visit: Yes Status: Acute
--- NOTE | 2018-11-21 09:40 | PT.IIE ---
Surgical History (Last Reviewed 11/20/18 @ 21:48 by DAMARIS Bains) History of cholecystectomy (Acute) Previous section (Acute) Medical History (Last Reviewed 11/20/18 @ 21:47 by DAMARIS Bains) Murmur, heart (Acute) Postmenopause (Acute) Physical Therapy Inpatient Evaluation/Re-Eval M1 PT/OT-IP Prior Functional Status Start: 11/21/18 09:50 Freq: NEEDED Status: Active Protocol: Document 11/21/18 09:40 [facility] (Rec: 11/21/18 10:01 [facility] [id number]) Medical Review Prior Functional Status Medical History Reviewed Yes Mobility and Gait indep. community ambulation without device Activities of Daily Living and IADL's indep. I/ADLs Social History Household Members significant other Living Arrangements House Number of Floors (Floors) One Floor Number of Stairs To Enter/Railing? 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 Pt had onset L sided MORATAYA, jaw pain and L sided numbness/ tingling in the UE and LE. CTA was negative, MRI pending today. Pt with a h/o gallbladder removal last year, prior h/o low back injury and R sided sciatica. note determined R hip trochanteric bursitis as well M2 PT-IP Current Condition Start: 11/21/18 09:50 Freq: NEEDED Status: Active Protocol: Document 11/21/18 09:40 [facility] (Rec: 11/21/18 10:01 [facility] [id number]) Physical Therapy Current Condition Current Condition Evaluation Date 11/21/18 Treatment Diagnosis L sided MORATAYA, numbness/tingling L UE and LE, loss of sleep, weakness M3 PT-IP Subjective Start: 11/21/18 09:50 Freq: NEEDED Status: Active Protocol: Document 11/21/18 09:40 [facility] (Rec: 11/21/18 10:01 [facility] [id number]) Subjective Physical Therapy Visit Type Type Initial Evaluation Visit Start Time 08:50 Visit Stop Time 09:40 Total Visit Minutes 50 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 Patient Goals to go home today Therapy Pain Assessment Pain Present Pain Present Denied Pain M4 PT-IP Mobility and Gait Start: 11/21/18 09:50 Freq: NEEDED Status: Active Protocol: Document 11/21/18 09:40 [facility] (Rec: 11/21/18 10:01 [facility] [id number]) PT-Bed Mobility Assessment Supine to Sit Supine to Sit Independent Sit to Supine Sit to Supine Independent Scooting Scooting to Edge of Bed Independent PT-Transfer Assessment Sit to and From Stand Sit to and from Stand Independent Equipment Transfer Assistive Device None Transfers Transfer Destination Bed Transfer Technique Stand Step Pivot Transfer Ability Level of Assist Independent Gait Assessment Gait Gait Assistance Required: Independent Distance (Feet) 500 Assistive Devices Assistive Device None Gait Deviations General Gait Pattern Within Normal Limits Comments Gait Comments no c/o pain in standing or with walking. O2 saturation on RA 98-99%, HR 77-86 bpm with ambulation Stair Climbing Assessment Evaluation Level of Assist On Stairs Independent Devices Stair Climbing Assistive Devices None Technique/Endurance Stair Climbing Direction Ascend and Descend Stair Climbing Technique Step Over Step Number of Steps Climbed 3 Query Text: Stair Climbing Set # Repetitions (reps) 1 PT-Balance Assessment Sitting Balance and Reactions Static Sitting Balance Ability Normal Dynamic Sitting Balance Ability Normal Standing Balance and Reactions Static Standing Balance Ability Normal Dynamic Standing Balance Ability Normal Device Used none M5 PT-IP Objective Assessments Start: 11/21/18 09:50 Freq: NEEDED Status: Active Protocol: Document 11/21/18 09:40 [facility] (Rec: 11/21/18 10:01 [facility] [id number]) Orientation Orientation/Cognition Level of Alertness Alert Orientation Name Age Birthday Month Date Year Day of Week Place Situation Gross Range of Motion Upper Extremity ROM Assessment Within Functional Limits Lower Extremity ROM Assessment Within Functional Limits Strength Upper Extremity Strength Assessment Within Functional Limits Lower Extremity Strength Assessment Within Functional Limits Hip flexion 5/5 B Knee flexion and extension 5/5 B Ankle DF 5/5 B Comments Strength Comments R great toe extension 4+/5 Coordination Assessment Gross Coordination Gross Coordination WNL Assessment Finger to Nose Test Normal Performance Pronation/Supination Test Normal Performance Heel on Ellis Test Normal Performance Sensation Assessment Sensation Gross Sensation WNL Muscle Tone Muscle Tone WNL Yes M6 PT-IP Treatment Start: 11/21/18 09:50 Freq: NEEDED Status: Active Protocol: Document 11/21/18 09:40 [facility] (Rec: 11/21/18 10:01 [facility] [id number]) Physical Therapy Treatment Education Education Provided Safety Other Treatments Other Treatment Performed negative SLR L, positive on the R with R sided low back pain; sciatic neural tension R side only; Tenderness to palpation B IT band, R piriformis and gluteals, B trochanter (reported same pain bilaterally) M7 PT-IP Assessment and Plan Start: 11/21/18 09:50 Freq: NEEDED Status: Active Protocol: Document 11/21/18 09:40 [facility] (Rec: 11/21/18 10:01 [facility] [id number]) PT Summary Assessment and Plan Potential Rehabilitation Potential Excellent Status of Condition at Evaluation Stable Summary Assessment Summary Pt no longer with any numbness or tingling, no significant difference L vs R LE weakness besides R great toe extension 4+/5 with MMT. Coordination WNL. Pt with stable HR and O2 saturation during ambulation, no loss of balance and no reported pain with gait. Pt with (+) SLR active testing on the R, indicating possible recurrence of prior low back pain and evident tension in R side sciatic nerve compared to the L. Recommend pt attend physical therapy as an outpatient if deemed appropriate by PCP to address these impairments and to assist with return to prior level of exercise program including walking and develop a HEP. Pt with no acute PT needs at this time, she is safe to be indep. with gait in room and hallway unless she feels any recurring issues. Frequency of Treatment Frequency Of Treatment Discharge Recommendations To Nursing Amount of Assist Needed Independent Discharge Recommendations PT Discharge Recommendations Home Outpatient PT
[2018-11-21] MEDS: ENOXAPARIN 40 MG/0.4 ML SYRINGE SUBCUT (10:13)
[2018-11-21] MEDS: SODIUM CHLORIDE 0.9% FLUSH 10 ML IV ×2 (10:13→20:32)
--- NOTE | 2018-11-21 10:44 | CM.DANOTE ---
Discharge Planning/Care Management CM Discharge Assessment Start: 11/21/18 10:39 Freq: Status: Active Protocol: Document 11/21/18 10:39 (Rec: 11/21/18 10:44 [id number]) Discharge Planning Assessment Assigned Telephone Collector MALIKA Lopez Advance Directives? No Advance Directives on File No History Provided By Patient Medical Record Has Patient been admitted in last 30 No days? Prior Living Arrangements House Household Members significant other Type of transporation used prior to Drives own vehicle admit Independent with ADL's Yes Is patient alert and oriented? 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 Barriers to Discharge No Discharge Plan Home Transportation Arrangement Patient is hopeful to drive herself home. Referrals Initiated None needed Comment Patient admitted OBS for possible ACS. Payer is [email or web address]. Reviewed EMR: Patient pending, MRI, ECHO and PT eval. Treatment goals unclear at this time. Met with patient: patient does not expect any discharge needs or concerns. 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 CM team will need to follow to best determine discharge plan . Whiteboard Updated in Patient Room with Yes name and ext. # of Telephone Collector Review Status In Process Please Provide Date Initial DC 11/21/18 Assessment Was Performed Next Review Type Continued Stay Review
[2018-11-21 13:00] VITALS: BP 111/67; PULSE 67; RESP 16; TEMP 36.7; O2SAT 99
[2018-11-21] MEDS: ASPIRIN EC 81 MG TABLET PO (13:40)
[2018-11-21 15:20] VITALS: BP 110/71; PULSE 62; RESP 17; TEMP 36.9; O2SAT 97
[2018-11-21 19:40] VITALS: BP 131/76; PULSE 65; RESP 16; TEMP 36.8; O2SAT 95
[2018-11-21] MEDS: ATORVASTATIN 10 MG TABLET PO (20:32)
[2018-11-22 01:29] VITALS: BP 119/75; PULSE 65; RESP 16; TEMP 36.4; O2SAT 97
--- NOTE | 2018-11-22 01:34 | PC.NURSE ---
Addendum entered by Louann Szymanski R.N. 11/22/18 06:40: Slept well during the night. Continues to deny any pain or change in sensation. Plan is to have MRI today and then possible DC home. Robert OCAMPO spoken to earlier and gave verbal order to DC continuous oximetry. Original Note: Patient is alert and oriented. Breath sounds CTA with RA sat of 98%; declines to have pulse oximeter on continuously. HRR with last telemetry reading of SB with rate of 57. Denies nausea. BT present and abdomen is soft. Denies dysuria, frequency or urgency. Is independent with mobility and steady on feet. Denies any dizziness, pain, tingling/numbness. Fall risk score is moderate; bed alarm not in use so reminded patient when getting up if she experiences any change in sensation, dizziness or pain she should call for assist and she verbalizes agreement. Refusing SCD's.
[2018-11-22 05:37] LABS: Add Manual Diff / Slide Review NO; Basophils Absolute Auto 100 /uL (0-100); Basophils Percent Auto 1.1 % (0-2); Eosinophils Absolute Auto 200 /uL (0-450); Eosinophils Percent Auto 4.4 % (2-4); Hematocrit 45.2 % (36-46); Hemoglobin 15.3 g/dL (12.0-16.0); Lymphocytes Absolute Auto 2400 /uL (1100-4500); Lymphocytes Percent Auto 43.3 % (25-40); Mean Corpuscular HGB Conc 33.9 % (30-36); Mean Corpuscular Hemoglobin 30.7 PG (26-34); Mean Corpuscular Volume 90.6 fL (80-100); Monocytes Absolute Auto 600 /uL (0-900); Monocytes Percent Auto 11.6 % (3-14); Neutrophils Absolute Auto 2200 /uL (1500-7000); Neutrophils Percent Auto 39.6 % (50-75); Platelet Count 265 X10^3/uL (150-400); Red Blood Cell Count 4.99 X10^6/uL (4.0-5.2); Red Cell Distribution Width 14.1 % (11.6-14.8); White Blood Cell Count 5.5 X10^3/uL (4.5-11.0)
[2018-11-22 06:00] LABS: BUN Creatinine Ratio 23.8 (6-22); Blood Urea Nitrogen 19 mg/dL (7-17); Calcium 9.2 mg/dL (8.4-10.2); Carbon Dioxide 29 mmol/L (22-32); Chloride 103 mmol/L (98-107); Estimated Glomerular Filt Rate > 60.0 mL/min (>60); Glucose 98 mg/dL (70-100); HEMOLYSIS < 15 (0-50); Potassium 4.6 mmol/L (3.4-5.1); Sodium 139 mmol/L (137-145)
[2018-11-22 06:09] VITALS: BP 133/77; PULSE 79; RESP 14; TEMP 36.3; O2SAT 98
[2018-11-22 09:30] VITALS: BP 110/62; PULSE 78; RESP 16; TEMP 36.8; O2SAT 97
--- NOTE | 2018-11-22 10:07 | PM.PN.1 ---
Subjective Date Patient Seen: 11/22/18 Time Patient Seen: 10:07 Exam Vital Signs (past 8 hours): - 11/22/18 06:09 Temperature 97.4 F L Pulse Rate 79 Respiratory Rate 14 Blood Pressure 133/77 Pulse Oximetry 98 Oxygen Delivery Method Room Air Oxygen Flow Rate 0 Objective Labs Result Diagrams: 11/22/18 05:21 11/22/18 05:21 Labs: Laboratory Results - last 24 hr 11/22/18 11/22/18 05:21 05:21 WBC 5.5 RBC 4.99 Hgb 15.3 Hct 45.2 MCV 90.6 MCH 30.7 MCHC 33.9 RDW 14.1 Plt Count 265 Neut % (Auto) 39.6 L Lymph % (Auto) 43.3 H [place] % (Auto) 11.6 Eos % (Auto) 4.4 H Baso % (Auto) 1.1 Neut # (Auto) 2200 Lymph # (Auto) 2400 [place] # (Auto) 600 Eos # (Auto) 200 Baso # (Auto) 100 Sodium 139 Potassium 4.6 Chloride 103 Carbon Dioxide 29 BUN 19 H Creatinine 0.80 Estimated GFR > 60.0 BUN/Creatinine Ratio 23.8 H Glucose 98 Calcium 9.2
--- NOTE | 2018-11-22 10:47 | PC.NURSE ---
Pt. a/o x 3. Patient down to [place] without incident.
[2018-11-22] MEDS: ASPIRIN EC 81 MG TABLET PO (10:58)
[2018-11-22] MEDS: SODIUM CHLORIDE 0.9% FLUSH 10 ML IV (10:59)
[2018-11-22] MEDS: ENOXAPARIN 40 MG/0.4 ML SYRINGE SUBCUT (11:00)
[2018-11-22 13:00] VITALS: BP 132/66; PULSE 88; RESP 16; TEMP 36.6; O2SAT 97
--- NOTE | 2018-11-22 13:20 | PM.DS.1 ---
History of Present Illness Date Patient Seen: 11/22/18 Chief complaint: throbbing head on left side,lossing sleep. Narrative: This is a 53-year-old female patient who has a past history cardiac anomaly and strong family history of cardiovascular disease and presents today to the ER with complaints of a left headache that started yesterday and continued through today. The pain was severe enough to affect her sleep. She did not take medications stating she ?is not a pill taker?. She was able to distract herself with activities through the day and experienced jaw pain onset approximately 12 30-1 p.m. today. This afternoon at about 4:00 p.m. the patient developed left-sided facial numbness, a neck ache, numbness and tingling in her left arm and hand and described altered sensation down her left side and into her left leg and foot and presented to the emergency department for evaluation. Patient has had associated complaints of photophobia and phonophobia but has not had a headache of this severity or duration with a for mentioned symptoms previously. 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 She has a strong family history with her mother having atrial fibrillation a pacemaker and hypertension. She also lost 2 sisters at approximately the age of 28 due to cardiac disease. The patient provides additional history of exertional dyspnea with shortness of breath ascending a flight of stairs that started approximately 2 months ago. Patient denies recent illness or trauma and provides no other significant past medical history though she does complain of prior lumbar strain and right hip pain. She is postmenopausal no longer having menstrual periods and is not taking hormone replacement therapy. She had recent gallbladder surgery that was complicated by gallbladder or rupture with a prolonged recovery several months ago. She takes no routine medications and takes multiple vitamins tumeric and magnesium. She presently has continued head pain but paresthesias have resolved, she denies changes in vision or hearing and no dizziness. She denies complaints of chest pain, back pain, cough or dyspnea at rest, abdominal pain, nausea or vomiting Discharge Providers Date of admission: 11/20/18 21:07 Consults: 11/20/18 21:38 Consult to Analyst Competitive Intelligence Routine Comment[place] needs follow up care 11/20/18 21:51 Consult to Pastoral Services Routine Comment: would like visits :) 11/20/18 22:25 Consult to Physical Therapy Evaluate & Treat Comment: Right trochanteric bursitis Physician Instructions: Evaluate and Treat Discharge provider: Sebas Desai MD Discharge Date: 11/22/18 Summary Discharge Diagnosis: (1) Jaw pain: Problem details: We have ruled out acute coronary syndrome. Echocardiogram is unchanged. Dr. Alvarez reviewed the initial echocardiogram and his notes from the office show that he felt that she did not have hypertrophic cardiomyopathy. Ideally a treadmill would be done before discharge but since it is the weekend that will need to be done as an outpatient. Continue aspirin and begin atorvastatin. The cholesterol is 250 and the LDL is 159. Current visit: Yes Status: Acute (2) Arm paresthesia, left: Problem details: Rulied out acute coronary syndrome and had a brain MRI done today to rule out any obvious brain mass causing the headaches and this symptom. I spoke with Radiology who interpreted it as normal. Current visit: Yes Status: Acute (3) Headache: Problem details: Brain MRI read as normal. Already feeling better. Qualifiers: Headache chronicity pattern: unspecified pattern Headache type: unspecified Intractability: not intractable Qualified Code(s): R51 - Headache Current visit: Yes Status: Acute (4) Mixed hyperlipidemia: Problem details: Begin on atorvastatin 10 mg a day. Total cholesterol 250, LDL 159, explained to her and her . Current visit: Yes Status: Acute Exam Vital Signs (past 8 hours): - 11/22/18 06:09 11/22/18 09:30 Temperature 97.4 F L 98.2 F Pulse Rate 79 78 Respiratory Rate 14 16 Blood Pressure 133/77 110/62 Pulse Oximetry 98 97 Oxygen Delivery Method Room Air Oxygen Flow Rate 0 Narrative Exam Narrative: Alert and oriented x3. No apparent distress. Heart is regular rate and rhythm without murmur. Lungs are clear to auscultation bilaterally. Extremities have no ankle edema. She is up and walking around without any residual left-sided symptoms. Objective ECG Impression: Lane +---------+ Hospital +---------+ : : [address] : : : : [place] : : : : [id number] : : : : Phone: [phone] +---------+ Echocardiogram Report + + :Name: ROMULO TOLENTINO Study Date: 11/21/2018 Height: 61 in : :[facility] Weight: 160 lb: : Gender: Female BSA: 1.7 m2 : :: 1965 Age: 53 yrs : :Reason For Study: MIGRAINE, MURMUR : : Performed By: Karina Florentino : :Referring: PAULIE BENITEZ : + + Interpretation Summary The echo findings are consistent with hypertrophic cardiomyopathy. The mean gradient across the left ventricle outflow tract is trivial at 7 mmHg at rest which increases to 20 mmHg with Valsalva. There is systolic anterior motion of the mitral valve. There is systolic anterior motion of the chordal apparatus. The right ventricle is normal in size and function. No significant valvular abnormalities. Comparison is made with the echocardiogram of 07/03/2018. No significant change. Labs Result Diagrams: 11/22/18 05:21 11/22/18 05:21 Labs: Laboratory Results - last 24 hr 11/22/18 11/22/18 05:21 05:21 WBC 5.5 RBC 4.99 Hgb 15.3 Hct 45.2 MCV 90.6 MCH 30.7 MCHC 33.9 RDW 14.1 Plt Count 265 Neut % (Auto) 39.6 L Lymph % (Auto) 43.3 H [place] % (Auto) 11.6 Eos % (Auto) 4.4 H Baso % (Auto) 1.1 Neut # (Auto) 2200 Lymph # (Auto) 2400 [place] # (Auto) 600 Eos # (Auto) 200 Baso # (Auto) 100 Sodium 139 Potassium 4.6 Chloride 103 Carbon Dioxide 29 BUN 19 H Creatinine 0.80 Estimated GFR > 60.0 BUN/Creatinine Ratio 23.8 H Glucose 98 Calcium 9.2 Discharge Plan Discharge Plan Patient Disposition: Home Discharge comment: Follow up with Dr. Rao or her office next week to have a Nuclear Medicine treadmill heart test arranged. Discharge Med Rec/Prescriptions Prescriptions: New atorvastatin 10 mg tablet 10 mg PO BEDTIME Qty: 30 RF: 0 Follow up/Referrals: Josh Rao MD [Non-Staff] - 11/29/18 12:00 am (Follow up next week) Provider Discharge Instructions Diet: Diet as Tolerated Visit Report/Discharge Packet Instructions: Total Cholesterol, Cholesterol and Your Heart: Where Do We Stand?, Atorvastatin (By mouth) Visit Report Forms: Stroke Signs & Symptoms Discharge Data Attending Provider: Paulie Benitez Admit Date/Time: 11/20/18 21:07
--- NOTE | 2018-11-22 13:20 | PC.NURSE ---
Addendum entered by Luciana Cho R.N. 11/22/18 14:14: D/c teaching done by student RN Adalgisa, agree with charting as documented. Original Note: Am shift Pt is a/o x3, MRI of brain completed, Pt able to travel w/ w/c. Denies pain, no numbness tingle noted. Rocael light in reach, plan to d/c when MRI compete 1 PA FWW
--- NOTE | 2018-11-22 14:01 | CM.DANOTE ---
DCP: continued: Pt now has been ok'd for d/c to home. She will followup with back wedger Dr. Rao/ANGIE next week for further outpt testing. Admission status: per MORE RN, remains OBS.
--- NOTE | 2018-11-22 14:47 | PC.NURSE ---
Pt dressed. IV removed. Instructed pt. to make f/u appt. with in one week. Discharge packed reviewed and given to pt. S/s of stroke explained in relationship to high cholesterol and blood pressure. Rx faxed to [facility] in [facility]. Pt. left with and all personal belongings via wheelchair to [facility].
== END 2018-11-22 15:03 | disposition home or self-care (01) ==
LOC: ED 20:28 → AC 21:10
PROVIDERS: Admitting Provider Nurse Practitioner Adult Health; Emergency Provider Emergency Medicine; Visit Provider Nurse Practitioner Adult Health
DX: R68.84 Jaw pain (principal); R29.818 Other symptoms and signs involving the nervous system; R51 Headache; R20.2 Paresthesia of skin; E78.2 Mixed hyperlipidemia; R01.1 Cardiac murmur, unspecified
CPT/HCPCS: 36415; 70496; 70498; 70553; 71045; 80048; 80053; 80061; 82550; 83690; 83735; 84484; 85025; 85610; 85730; 93005; 93010; 93306; 94762; 96361; 96374; 96375; 97116; 97161; 99283; 99285; 99291; G0378; A9579; J1200; J1650; J2765; Q9967